=== PATIENT | male | born 1985 | race Caucasian/White ===

== ENCOUNTER 2021-05-24 23:01 | Emergency (ER) | payer BC, OTHER ==
[~2021-05-24] VITALS: Ht 177.8 cm; Wt 79.4 kg
--- NOTE | 2021-05-24 23:32 | NUR ---
AFTER BEING TRIAGED, PATIENT WAS PLACED BACK IN WAITING ROOM TO WAIT FOR BED OPENING IN THE ER OR HALLWAY.
--- NOTE | 2021-05-25 00:50 | NUR ---
Patient placed in 2b.
--- NOTE | 2021-05-25 00:54 | NUR ---
Dr Loza into eval patient.
[2021-05-25] MEDS ORDERED: LIDOCAINE VISCUS 2% 15 ML UDC MM ONE (01:00)
[2021-05-25] MEDS: LIDOCAINE 4% TOPICAL 50 ML BOTTLE TP ONE (01:14)
[2021-05-25] MEDS: ONDANSETRON ODT 4 MG TAB.RAPDIS SL ONE (01:14)
[2021-05-25] MEDS ORDERED: LIDOCAINE 4% TOPICAL 50 ML BOTTLE ONE (01:15)
[2021-05-25] MEDS ORDERED: MAGNESIUM HYDROXIDE 30 ML LIQUID UDC ONE (01:15)
[2021-05-25] MEDS ORDERED: ONDANSETRON ODT 4 MG TAB.RAPDIS ONE (01:15)
[2021-05-25] MEDS ORDERED: IV D5/ 0.9% NACL 1,000 ML IV ONE (01:15)
[2021-05-25] MEDS: IV D5 1/2 NS 1000 ML 1,000 ML IV ONE (01:25)
[2021-05-25] MEDS: MAG HYDROX/AL HYDROX/SIMETH 30 ML LIQUID UDC PO ONE (01:31)
[2021-05-25] MEDS ORDERED: ONDA4TAB5 PO (01:49)
--- NOTE | 2021-05-25 02:15 | NUR ---
Patient discharged to home in stable condition. Written and verbal after care instructions given. Patient verbalizes understanding of instructions. Stressed follow up or return to ER for worsening s/s. Steady gait, denies any N/V/D. No headache/dizziness.
[2021-05-25 02:16] VITALS: BP 122/74
== END 2021-05-25 02:16 | disposition home or self-care (01) ==
LOC: ER 23:06
DX: R11.2 Nausea with vomiting, unspecified (principal); J02.9 Acute pharyngitis, unspecified; Z90.49 Acquired absence of other specified parts of digestive tract
CPT/HCPCS: J3490; Q0162